=== PATIENT | female | born 1980 | race Two or more races ===

== ENCOUNTER → 2018-03-24 | Outpatient (CLI) | payer OTHER ==
[~2018-03-24] MED LIST: FLONASE16 GM; GILTUSS TR TAB1 EACH PO
== END | disposition home or self-care (01) ==
LOC: RAD 501 11:37
DX: M54.2 Cervicalgia (principal)

== ENCOUNTER 2022-08-06 14:38 | Outpatient (CLI) | payer OTHER ==
[~2022-08-06 14:38] MED LIST changes: +ROBAXIN-750750 MG PO
== END 2022-08-06 14:59 | disposition home or self-care (01) ==
LOC: SONOGRAMA 14:38
PROVIDERS: ATTEND Internal Medicine Endocrinology, Diabetes & Metabolism
DX: E05.00 Thyrotoxicosis with diffuse goiter without thyrotoxic crisis or storm (principal)

== ENCOUNTER 2023-02-04 08:42 | Outpatient (CLI) | payer OTHER | END 2023-02-04 08:44 | disposition home or self-care (01) | LOC: MAMO-SONO 08:42 | PROVIDERS: ATTEND Internal Medicine | DX: Z12.31 Encounter for screening mammogram for malignant neoplasm of breast (principal); N63.0 Unspecified lump in unspecified breast ==

== ENCOUNTER 2023-04-26 08:17 | Outpatient (CLI) | payer OTHER | END 2023-04-26 08:29 | disposition home or self-care (01) | LOC: SONOGRAMA 08:17 | PROVIDERS: ATTEND Obstetrics & Gynecology | DX: N85.2 Hypertrophy of uterus (principal); Z77.018 Contact with and (suspected) exposure to other hazardous metals ==